=== PATIENT | male | born 1960 | race Caucasian/White ===

== ENCOUNTER 2020-05-21 10:39 | Inpatient (IN) | payer OTHER ==
[~2020-05-21] VITALS: Ht 177.8 cm; Wt 72.6 kg
[2020-05-21 12:06] LABS: HEMOGLOBIN 16.5 gm/dl (14.0-17.5); RED BLOOD COUNT 5.43 M/UL (4.20-5.50); WHITE BLOOD COUNT 21.4 K/UL (4.5-11.0)
[2020-05-22 06:07] LABS: HEMOGLOBIN 14.8 gm/dl (14.0-17.5); RED BLOOD COUNT 4.82 M/UL (4.20-5.50)
[2020-05-23 11:42] LABS: HEMOGLOBIN 14.2 gm/dl (14.0-17.5); RED BLOOD COUNT 4.69 M/UL (4.20-5.50); WHITE BLOOD COUNT 12.9 K/UL (4.5-11.0)
--- NOTE | 2020-05-23 11:46 | NUR ---
DR. HARE OK WITH PLACING A MIDLINE
[2020-05-23 12:02] LABS: BUN/CREATININE RATIO 16 (0-10)
--- NOTE | 2020-05-24 19:19 | NUR ---
Patient states he's anxious from laying in bed. Requesting medicaton for anxiety. he declined getting up to sit in chair . Medication ( xanax ) administered per p.r.n. order.
[2020-05-25] MEDS ORDERED: ASPIRIN EC81 MG PO (16:08)
[2020-05-25] MEDS ORDERED: CLOPIDOGREL75 MG PO (16:08)
[2020-05-25] MEDS ORDERED: CARVEDILOL3.125 MG PO (16:08)
[2020-05-25] MEDS ORDERED: NITROGLYCERIN0.4 MG SL (16:08)
[2020-05-25] MEDS ORDERED: PROTONIX 40 MG40 M1 PO (16:08)
[2020-05-25] MEDS ORDERED: ATORVASTATIN CA20 MG PO (16:08)
[2020-05-25] MEDS ORDERED: ZOLPIDEM TARTRAT5 MG PO (16:08)
[2020-05-25] MEDS ORDERED: LISINOPRIL5 MG PO (16:08)
== END 2020-05-25 16:00 | disposition home or self-care (01) | DRG 247 ==
LOC: ER1 10:39 → CCU 11:52 → CDU 11:52 → CCU 13:44
PROVIDERS: Family Medicine; ADMIT Internal Medicine Interventional Cardiology
PROC: 027135Z Dilation of Coronary Artery, Two Arteries with Two Drug-eluting Intraluminal Devices, Percutaneous Approach (ICD-10-PCS; principal; 2020-05-21)
PROC: 4A023N7 Measurement of Cardiac Sampling and Pressure, Left Heart, Percutaneous Approach (ICD-10-PCS; 2020-05-21)
PROC: B2111ZZ Fluoroscopy of Multiple Coronary Arteries using Low Osmolar Contrast (ICD-10-PCS; 2020-05-21)
PROC: B2151ZZ Fluoroscopy of Left Heart using Low Osmolar Contrast (ICD-10-PCS; 2020-05-21)
PROC: 3E073KZ Introduction of Other Diagnostic Substance into Coronary Artery, Percutaneous Approach (ICD-10-PCS; 2020-05-21)
DX: I21.19 ST elevation (STEMI) myocardial infarction involving other coronary artery of inferior wall (principal); E78.5 Hyperlipidemia, unspecified; G89.29 Other chronic pain; Z20.822 Contact with and (suspected) exposure to COVID-19; F41.9 Anxiety disorder, unspecified; I10 Essential (primary) hypertension; I25.119 Atherosclerotic heart disease of native coronary artery with unspecified angina pectoris; F17.200 Nicotine dependence, unspecified, uncomplicated; I48.0 Paroxysmal atrial fibrillation; Z79.01 Long term (current) use of anticoagulants; Z71.6 Tobacco abuse counseling; Z88.8 Allergy status to other drugs, medicaments and biological substances; M54.2 Cervicalgia
CPT/HCPCS: ECHO; 36415; 71045; 80048; 80053; 80061; 82550; 82553; 83735; 83874; 84100; 84484; 85025; 85027; 85347; 85610; 85730; 87635; 93005; 93306; 99152; 99153; 99285; C1725; C1760; C1769; C1874; C1887; J0461; J1170; J1644; J2250; J3010; J7030; Q9965; Q9967

== ENCOUNTER → 2020-06-21 | Outpatient (CLI) | payer OTHER ==
[~2020-06-21] MED LIST: AMBIEN10 MG PO; ASPIRIN EC81 MG PO; ATORVASTATIN CA20 MG PO; BAYER BACK & B1 EACH PO; BRILINTA90 MG PO; CARVEDILOL3.125 MG PO; CLOPIDOGREL75 MG PO; COREG3.125 MG PO; LIPITOR20 MG PO; LISINOPRIL5 MG PO; NITROGLYCERIN0.4 MG SL; PROTONIX 40 MG40 M1 PO; ZOLPIDEM TARTRAT5 MG PO
== END ==
LOC: ECHO 10:30
DX: I21.9 Acute myocardial infarction, unspecified (principal); Z95.5 Presence of coronary angioplasty implant and graft; I08.3 Combined rheumatic disorders of mitral, aortic and tricuspid valves
CPT/HCPCS: ECHO; 93306

== ENCOUNTER 2020-06-24 09:12 | Emergency (ER) | payer OTHER ==
[~2020-06-24] VITALS: Ht 177.8 cm; Wt 68.5 kg
[~2020-06-24 09:12] MED LIST changes: -AMBIEN10 MG PO; -BAYER BACK & B1 EACH PO; -BRILINTA90 MG PO; -COREG3.125 MG PO; -LIPITOR20 MG PO
[2020-06-24 10:01] LABS: HEMOGLOBIN 15.2 gm/dl (14.0-17.5); RED BLOOD COUNT 5.17 M/UL (4.20-5.50); WHITE BLOOD COUNT 10.8 K/UL (4.5-11.0)
[2020-06-24 10:24] LABS: BUN/CREATININE RATIO 15 (0-10)
[2020-06-24] MEDS ORDERED: BRILINTA90 MG PO (11:19)
[2020-06-24] MEDS ORDERED: AMBIEN10 MG PO (11:19)
[2020-06-24] MEDS ORDERED: COREG3.125 MG PO (11:20)
[2020-06-24] MEDS ORDERED: LIPITOR20 MG PO (11:20)
[2020-06-24] MEDS ORDERED: BAYER BACK & B1 EACH PO (11:21)
== END 2020-06-24 16:00 | disposition home or self-care (01) ==
LOC: ER1 09:12 → CDU 10:57 → ER1 10:57
PROVIDERS: Physician Assistant
DX: R07.89 Other chest pain (principal); I89.1 Lymphangitis; I25.2 Old myocardial infarction; I25.10 Atherosclerotic heart disease of native coronary artery without angina pectoris; E78.5 Hyperlipidemia, unspecified; I10 Essential (primary) hypertension; Z79.899 Other long term (current) drug therapy; Z79.01 Long term (current) use of anticoagulants; Z87.891 Personal history of nicotine dependence; Z20.822 Contact with and (suspected) exposure to COVID-19
CPT/HCPCS: 71045; 80053; 82550; 82553; 83874; 84484; 85025; 93005; 99284; U0002